=== PATIENT | female | born 1990 | race Caucasian/White ===

== ENCOUNTER 2017-11-05 13:12 | Emergency (ER) | payer MEDICAID ==
[~2017-11-05] VITALS: Ht 160 cm; Wt 68.0 kg
[2017-11-05 14:29] VITALS: BP 97/74
[2017-11-05] MEDS ORDERED: HYDROcodone/APAP 5/325 TABLET PO ONE (14:30)
[2017-11-05] MEDS ORDERED: ONDANSETRON ODT 4 MG PO ONE (14:30)
[2017-11-05] MEDS ORDERED: CEFTRIAXONE 1,000 MG IM ONE (14:30)
[2017-11-05] MEDS ORDERED: ONDANSETRON ODT 4 MG ONE (14:34)
[2017-11-05] MEDS ORDERED: CEFTRIAXONE 1,000 MG ONE (14:34)
[2017-11-05] MEDS ORDERED: LIDOCAINE-MPF 1%, 2ML ONE (14:34)
[2017-11-05] MEDS ORDERED: HYDROcodone/APAP 5/325 TABLET ONE (14:35)
[2017-11-05] MEDS ORDERED: LIDOCAINE-MPF 1%, 5ML ONE (14:40)
[2017-11-05 14:44] LABS: CULTURE INDICATED? YES; MICROSCOPIC INDICATED
== END 2017-11-05 16:16 | disposition home or self-care (01) ==
LOC: ED 16:09
DX: O26.892 Other specified pregnancy related conditions, second trimester (principal); O23.12 Infections of bladder in pregnancy, second trimester; O21.9 Vomiting of pregnancy, unspecified; K04.7 Periapical abscess without sinus; K02.9 Dental caries, unspecified; R11.0 Nausea; Z3A.18 18 weeks gestation of pregnancy
CPT/HCPCS: 81001; 87086; 96372; 99284; J0696; Q0162

== ENCOUNTER 2021-02-10 20:07 | Emergency (ER) | payer MEDICAID ==
[~2021-02-10] VITALS: Ht 160 cm; Wt 79.9 kg
[2021-02-10 20:14] VITALS: BP 115/63
--- NOTE | 2021-02-10 21:15 | NUR ---
PT CALLED BY PA FOR PIT. NA X 1
--- NOTE | 2021-02-10 21:50 | NUR ---
PT CALLED FOR PIT NA X 2
--- NOTE | 2021-02-11 00:11 | NUR ---
pt nil x 3
== END 2021-02-11 00:13 | disposition left against medical advice (07) ==
LOC: ED 20:37
DX: J02.9 Acute pharyngitis, unspecified (principal); Z53.21 Procedure and treatment not carried out due to patient leaving prior to being seen by health care provider